=== PATIENT | female | born 1970 | race Asian ===

== ENCOUNTER → 2017-04-21 | Outpatient (CLI) | payer BC ==
[~2017-04-21] MED LIST: ACET650S21 PO; AMLO5TAB2 PO; ASPI-650 PO; ESOM20CA PO; OMEG1CAP6 PO; PARO10TA3 PO; SUMA50TA4 PO; TOPI25TA32 PO
== END | disposition home or self-care (01) ==
LOC: CARD 09:10
PROVIDERS: ATTEND Nurse Practitioner Family
DX: R94.31 Abnormal electrocardiogram [ECG] [EKG] (principal); I10 Essential (primary) hypertension; R07.89 Other chest pain
CPT/HCPCS: 93017; 93350

== ENCOUNTER → 2018-05-10 | Outpatient (CLI) | payer BC ==
[~2018-05-10] MED LIST changes: +GADOBUTROL 7.5 MMOL/7.5 ML PFS ONE
== END | disposition home or self-care (01) ==
LOC: CFH 15:41
PROVIDERS: ATTEND Registered Nurse
DX: G93.89 Other specified disorders of brain (principal)
CPT/HCPCS: 70553; A9585

== ENCOUNTER 2018-05-27 13:49 | Day surgery (SDC) | payer BC ==
[~2018-05-27] VITALS: Ht 175.3 cm; Wt 66.6 kg
[~2018-05-27 13:49] MED LIST changes: -GADOBUTROL 7.5 MMOL/7.5 ML PFS ONE
[2018-05-27] MEDS ORDERED: SODIUM CHLORIDE 0.9% 1,000 ML IV SCH (14:18)
[2018-05-27 14:39] VITALS: BP 139/88
[2018-05-27] MEDS ORDERED: LIDOCAINE-MPF 2%, 2ML ONE (14:55)
[2018-05-27] MEDS ORDERED: PLEASE ENTER HEIGHT AND WEIGHT MC SCH (15:00)
[2018-05-27 17:00] VITALS: BP 136/75
[2018-05-27 17:07] LABS: GLUCOSE, CSF 47 mg/dL (40-80); TOTAL PROTEIN,CSF 37 mg/dL (15-45)
[2018-05-27 17:30] LABS: ALBUMIN 3.6 g/dL (3.4-5.0); ANION GAP 5 mmol/L (5-15); CALCIUM 8.9 mg/dL (8.5-10.1); CHLORIDE 110 mmol/L (98-107); CREATININE 0.66 mg/dL (0.55-1.02)
[2018-05-27 19:30] VITALS: BP 134/78
== END 2018-05-27 20:00 | disposition home or self-care (01) ==
LOC: RAD 13:49 → 4NOR 16:40 → RAD 20:00
PROVIDERS: ATTEND Registered Nurse
DX: G35 Multiple sclerosis (principal); I10 Essential (primary) hypertension; Z79.82 Long term (current) use of aspirin; Z79.899 Other long term (current) drug therapy
CPT/HCPCS: 36415; 62270; 80069; 82040; 82042; 82784; 82945; 83520; 83873; 84157; 84244; 86645; 86695; 86696; 86762; 86777; 86778; 89051; J3490

== ENCOUNTER → 2018-11-09 | Outpatient (CLI) | payer BC ==
[~2018-11-09] MED LIST changes: +AMLO-150 PO; -AMLO5TAB2 PO; +GADOBUTROL 7.5 MMOL/7.5 ML PFS ONE
== END | disposition home or self-care (01) ==
LOC: CFH 15:14
PROVIDERS: ATTEND Registered Nurse
DX: R90.82 White matter disease, unspecified (principal); G43.109 Migraine with aura, not intractable, without status migrainosus
CPT/HCPCS: 70553; 82565; A9585

== ENCOUNTER 2019-06-19 11:38 | Outpatient (CLI) | payer BC ==
[~2019-06-19 11:38] MED LIST changes: -GADOBUTROL 7.5 MMOL/7.5 ML PFS ONE
== END 2019-06-19 23:59 | disposition home or self-care (01) ==
LOC: CFH 11:38
DX: E04.1 Nontoxic single thyroid nodule (principal)
CPT/HCPCS: 76536

== ENCOUNTER 2020-03-18 12:21 | Outpatient (CLI) | payer BC | END 2020-03-18 23:59 | disposition home or self-care (01) | LOC: CFH 12:21 | PROVIDERS: ATTEND Family Medicine | DX: Z12.31 Encounter for screening mammogram for malignant neoplasm of breast (principal); Z13.6 Encounter for screening for cardiovascular disorders; E78.5 Hyperlipidemia, unspecified; E04.9 Nontoxic goiter, unspecified; E04.1 Nontoxic single thyroid nodule | CPT/HCPCS: 75571; 76536; 77063; 77067 ==

== ENCOUNTER → 2020-04-03 | Outpatient (CLI) | payer BC | END | disposition home or self-care (01) | LOC: CFH 07:25 | PROVIDERS: ATTEND Family Medicine | DX: R92.8 Other abnormal and inconclusive findings on diagnostic imaging of breast (principal) | CPT/HCPCS: 76642; 77065 ==

== ENCOUNTER 2020-04-25 13:45 | Outpatient (CLI) | payer BC ==
[2020-04-25] MEDS ORDERED: LIDOCAINE 1%, 20ML ONE (14:00)
[2020-04-25] MEDS ORDERED: SODIUM BICARBONATE 4.2%, 5ML ONE (14:00)
[2020-04-25] MEDS ORDERED: LIDOCAINE 1%-EPI 1:100K, 20ML ONE (14:00)
== END 2020-04-25 23:59 | disposition home or self-care (01) ==
LOC: CFH 13:45
PROVIDERS: ATTEND Family Medicine
DX: N63.15 Unspecified lump in the right breast, overlapping quadrants (principal); D05.11 Intraductal carcinoma in situ of right breast
CPT/HCPCS: 19083; 88305; 88341; 88342; J3490

== ENCOUNTER 2020-05-23 08:20 | Outpatient (CLI) | payer BC ==
[2020-05-23] MEDS ORDERED: LIDOCAINE 1%-EPI 1:100K, 20ML ONE (09:31)
[2020-05-23] MEDS ORDERED: SODIUM BICARBONATE 4.2%, 5ML ONE (09:31)
[2020-05-23] MEDS ORDERED: LIDOCAINE 1%, 20ML ONE (09:31)
[2020-05-27] MEDS ORDERED: LEVO75TA5 PO (08:18)
== END 2020-05-23 23:59 | disposition home or self-care (01) ==
LOC: CFH 08:20
PROVIDERS: ATTEND Surgery
DX: D05.11 Intraductal carcinoma in situ of right breast (principal); Z88.8 Allergy status to other drugs, medicaments and biological substances; Z79.82 Long term (current) use of aspirin; Z72.89 Other problems related to lifestyle; Z82.49 Family history of ischemic heart disease and other diseases of the circulatory system; Z79.899 Other long term (current) drug therapy
CPT/HCPCS: 19285; 77065; J3490

== ENCOUNTER 2020-05-30 09:25 | Day surgery (SDC) | payer BC ==
[~2020-05-30] VITALS: Ht 160 cm; Wt 65.0 kg
[~2020-05-30 09:25] MED LIST changes: +LEVO75TA5 PO
[2020-05-30] MEDS ORDERED: LIDOCAINE-MPF 1%, 5ML ONE (09:45)
[2020-05-30] MEDS ORDERED: LACTATED RINGERS 1,000 ML IV SCH (10:16)
[2020-05-30 10:18] VITALS: BP 133/92
[2020-05-30] MEDS ORDERED: MIDAZOLAM 1 MG/ML, 2ML ONE (10:27)
[2020-05-30] MEDS ORDERED: FENTANYL PF 250 MCG/5ML ONE (10:27)
[2020-05-30] MEDS ORDERED: CHLORHEXIDINE 15 ML UDC MM ONE (10:30)
[2020-05-30] MEDS ORDERED: BUPIVACAINE/PF-EPI 0.5% 1:200K ONE (10:53)
[2020-05-30] MEDS ORDERED: ISOSULFAN BLUE 10 MG/ML, 5ML IV ONE (10:53)
[2020-05-30] MEDS ORDERED: SCOPOLAMINE 1MG PATCH TD SCH (11:00)
[2020-05-30] MEDS ORDERED: SCOPOLAMINE 1MG PATCH TD ONE (11:00)
[2020-05-30] MEDS ORDERED: DEXAMETHASONE 4 MG/ML, 1ML ONE (11:14)
[2020-05-30] MEDS ORDERED: CEFAZOLIN 1,000 MG ONE (11:14)
[2020-05-30] MEDS ORDERED: ROCURONIUM 10 MG/ML,10ML ONE (11:14)
[2020-05-30] MEDS ORDERED: PROPOFOL 10 MG/ML, 20ML ONE (11:14)
[2020-05-30] MEDS ORDERED: ONDANSETRON 2MG/ML, 2ML ONE (11:14)
[2020-05-30] MEDS ORDERED: SUCCINYLCHOLINE 20 MG/ML, 10ML ONE (11:14)
[2020-05-30] MEDS ORDERED: MEPERIDINE/PF 25MG/0.5ML IVPush PRN (12:00)
[2020-05-30] MEDS ORDERED: DIAZEPAM 5 MG/ML, 2ML IV PRN ×2 (12:00)
[2020-05-30] MEDS ORDERED: ALBUTEROL SULFATE 2.5 MG/3 ML NPPB PRN (12:00)
[2020-05-30] MEDS ORDERED: ONDANSETRON 2MG/ML, 2ML IVPush PRN (12:00)
[2020-05-30] MEDS ORDERED: hydrALAzine 20 MG/ML, 1ML IV PRN (12:00)
[2020-05-30] MEDS ORDERED: METOCLOPRAMIDE 5 MG/ML, 2ML IV PRN (12:00)
[2020-05-30] MEDS ORDERED: LABETALOL 5MG/ML, 20ML IV PRN (12:00)
[2020-05-30] MEDS ORDERED: PROMETHAZINE 25 MG/ML, 1ML IV PRN (12:00)
[2020-05-30] MEDS ORDERED: KETOROLAC 30 MG/1 ML IV PRN (12:00)
[2020-05-30] MEDS ORDERED: FENTANYL PF 100 MCG/2ML ONE (13:56)
[2020-05-30] MEDS ORDERED: ACETAMINOPHEN 650 MG/20.3 ML UDC ONE (13:56)
[2020-05-30] MEDS ORDERED: OXYcodone 5 MG/5 ML ORAL.SOL UDC ONE (13:56)
[2020-05-30] MEDS: OXYcodone 5 MG/5 ML ORAL.SOL UDC PO PRN ×2 (14:00→16:59)
[2020-05-30] MEDS ORDERED: ACETAMINOPHEN 650 MG/20.3 ML UDC PO PRN (14:00)
[2020-05-30] MEDS: FENTANYL PF 100 MCG/2ML IV PRN ×4 (14:00→14:21)
[2020-05-30] MEDS ORDERED: HYDROmorphone 1 MG/ML, 1ML INJ ONE (14:17)
[2020-05-30] MEDS: HYDROmorphone 1 MG/ML, 1ML INJ IV PRN ×2 (14:30→14:35)
== END 2020-05-30 17:25 | disposition home or self-care (01) ==
LOC: OUT 09:25 → EDSTATUS 12:00 → OUT 17:25
PROVIDERS: ATTEND Surgery
DX: C50.111 Malignant neoplasm of central portion of right female breast (principal); Z20.828 Contact with and (suspected) exposure to other viral communicable diseases; I10 Essential (primary) hypertension; E03.9 Hypothyroidism, unspecified; Z79.890 Hormone replacement therapy; Z79.899 Other long term (current) drug therapy; Z90.49 Acquired absence of other specified parts of digestive tract; Z90.710 Acquired absence of both cervix and uterus; Z88.8 Allergy status to other drugs, medicaments and biological substances; Z80.3 Family history of malignant neoplasm of breast; Z82.49 Family history of ischemic heart disease and other diseases of the circulatory system; Z83.3 Family history of diabetes mellitus; Z82.3 Family history of stroke
CPT/HCPCS: 19301; 36415; 38525; 38792; 76098; 87635; 88305; 88307; 88333; A9541; J0330; J0690; J1100; J1170; J2250; J2405; J2704; J3010; J7120

== ENCOUNTER → 2020-06-26 | Outpatient (CLI) | payer BC ==
[~2020-06-26] MED LIST changes: +AMLO10TA8 PO; +ROSU5TAB12 PO
== END | disposition home or self-care (01) ==
LOC: CVU 13:54
PROVIDERS: ATTEND Specialist
DX: C50.811 Malignant neoplasm of overlapping sites of right female breast (principal)
CPT/HCPCS: 93306

== ENCOUNTER 2020-06-27 07:14 | Day surgery (SDC) | payer BC ==
[~2020-06-27] VITALS: Ht 160 cm; Wt 65.6 kg
[~2020-06-27 07:14] MED LIST changes: -AMLO10TA8 PO; -ROSU5TAB12 PO
[2020-06-27 07:38] VITALS: BP 121/84
[2020-06-27] MEDS ORDERED: ROSU5TAB12 PO (07:44)
[2020-06-27] MEDS ORDERED: AMLO10TA8 PO (07:44)
[2020-06-27] MEDS ORDERED: LACTATED RINGERS 1,000 ML IV SCH (07:45)
[2020-06-27] MEDS ORDERED: CHLORHEXIDINE 15 ML UDC MM ONE (08:00)
[2020-06-27] MEDS ORDERED: ACETAMINOPHEN 500 MG TABLET ONE (08:27)
[2020-06-27] MEDS ORDERED: SCOPOLAMINE 1MG PATCH TD ONE (08:28)
[2020-06-27] MEDS ORDERED: ACETAMINOPHEN 500 MG TABLET PO ONE (08:30)
[2020-06-27] MEDS ORDERED: SCOPOLAMINE 1MG PATCH TD SCH (08:30)
[2020-06-27] MEDS ORDERED: HEPARIN 1,000 UNITS/ML, 10ML ONE (08:32)
[2020-06-27] MEDS ORDERED: BUPIVACAINE/PF 0.5% ONE (08:32)
[2020-06-27] MEDS ORDERED: EPINEPHRINE 1 MG/ML, 1ML ONE (08:32)
[2020-06-27] MEDS ORDERED: FENTANYL PF 250 MCG/5ML ONE (08:48)
[2020-06-27] MEDS ORDERED: MIDAZOLAM 1 MG/ML, 2ML ONE (08:48)
[2020-06-27] MEDS ORDERED: PROPOFOL 10 MG/ML, 20ML ONE (09:04)
[2020-06-27] MEDS ORDERED: CEFAZOLIN 1,000 MG ONE (09:04)
[2020-06-27] MEDS ORDERED: PHENYLEPHRINE 10 MG/ML ONE (09:04)
[2020-06-27] MEDS ORDERED: SUCCINYLCHOLINE 20 MG/ML, 10ML ONE (09:04)
[2020-06-27] MEDS ORDERED: LIDOCAINE PF 2%, 5ML ONE (09:04)
[2020-06-27] MEDS ORDERED: KETOROLAC 30 MG/1 ML ONE (09:04)
[2020-06-27] MEDS ORDERED: ONDANSETRON 2MG/ML, 2ML ONE ×2 (09:04→11:41)
[2020-06-27] MEDS ORDERED: DEXAMETHASONE 4 MG/ML, 1ML ONE (09:04)
[2020-06-27] MEDS ORDERED: hydrALAzine 20 MG/ML, 1ML IV PRN (09:30)
[2020-06-27] MEDS ORDERED: LABETALOL 5MG/ML, 20ML IV PRN (09:30)
[2020-06-27] MEDS ORDERED: MEPERIDINE/PF 25MG/0.5ML IVPush PRN (09:30)
[2020-06-27] MEDS ORDERED: PROMETHAZINE 25 MG/ML, 1ML IVPush PRN (09:30)
[2020-06-27] MEDS ORDERED: DIAZEPAM 5 MG/ML, 2ML IVPush PRN (09:30)
[2020-06-27] MEDS ORDERED: ONDANSETRON 2MG/ML, 2ML IVPush PRN (09:30)
[2020-06-27] MEDS ORDERED: DIPHENHYDRAMINE 50 MG/ML, 1ML IVPush PRN (09:30)
[2020-06-27] MEDS ORDERED: HYDROmorphone 1 MG/ML, 1ML INJ IVPush PRN (09:30)
[2020-06-27] MEDS ORDERED: HEPARIN 1,000 UNITS/ML, 10ML IV ONE (09:31)
[2020-06-27] MEDS ORDERED: BUPIVACAINE/PF-EPI 0.5% 1:200K INFIL ONE (09:31)
[2020-06-27] MEDS ORDERED: FENTANYL PF 100 MCG/2ML ONE (11:27)
[2020-06-27] MEDS: OXYcodone 5 MG/5 ML ORAL.SOL UDC PO PRN ×2 (11:28→15:59)
[2020-06-27] MEDS ORDERED: OXYcodone 5 MG/5 ML ORAL.SOL UDC ONE (11:28)
[2020-06-27] MEDS: FENTANYL PF 100 MCG/2ML IV PRN ×3 (11:35→12:10)
== END 2020-06-27 16:15 | disposition home or self-care (01) ==
LOC: OUT 07:14
PROVIDERS: ATTEND Surgery
DX: C50.811 Malignant neoplasm of overlapping sites of right female breast (principal); Z20.828 Contact with and (suspected) exposure to other viral communicable diseases; I10 Essential (primary) hypertension; E03.9 Hypothyroidism, unspecified; Z79.890 Hormone replacement therapy; Z79.899 Other long term (current) drug therapy; Z88.8 Allergy status to other drugs, medicaments and biological substances; Z90.710 Acquired absence of both cervix and uterus; Z90.49 Acquired absence of other specified parts of digestive tract; Z80.3 Family history of malignant neoplasm of breast; Z82.3 Family history of stroke; Z82.49 Family history of ischemic heart disease and other diseases of the circulatory system
CPT/HCPCS: 19303; 36415; 36561; 71045; 77001; 87635; 88307; C1729; C1788; J0171; J0330; J0690; J1100; J1644; J1885; J2250; J2370; J2405; J2704; J3010; J7120

== ENCOUNTER → 2020-07-16 | Outpatient (CLI) | payer BC ==
[~2020-07-16] MED LIST changes: +AMLO10TA8 PO; +ROSU5TAB12 PO
== END | disposition home or self-care (01) ==
LOC: RAD 11:17
PROVIDERS: ATTEND Specialist
DX: C50.811 Malignant neoplasm of overlapping sites of right female breast (principal)
CPT/HCPCS: 78306; A9503

== ENCOUNTER 2020-07-30 01:04 | Inpatient (IN) | payer BC ==
[~2020-07-30] VITALS: Ht 157.5 cm; Wt 68.0 kg
[2020-07-30] MEDS ORDERED: SODIUM CHLORIDE 0.9% 1,000ML IVBOLUS ONE ×2 (01:30→05:00)
[2020-07-30] MEDS ORDERED: SODIUM CHLORIDE FLUSH 10ML SYR IVF ONE (01:30)
[2020-07-30] MEDS ORDERED: ONDANSETRON 2MG/ML, 2ML IVPush ONE (01:30)
[2020-07-30] MEDS ORDERED: ONDANSETRON 2MG/ML, 2ML ONE ×2 (01:53→06:10)
[2020-07-30 02:11] LABS: MEAN CORPUSCULAR HGB CONC 31.2 g/dL (32.4-35.8); MEAN PLATELET VOLUME 8.5 fL (7.4-10.4); PLATELET COUNT 262 x10^3/uL (130-400); RED BLOOD COUNT 5.89 x10^6/uL (3.82-5.3); RED CELL DISTRIBUTION WIDTH 14.7 % (9.6-15.2)
[2020-07-30 02:17] LABS: ALANINE AMINOTRANSFERASE 44 U/L (12-78); ANION GAP 9 mmol/L (5-15); CALCIUM 9.5 mg/dL (8.5-10.1); CHLORIDE 99 mmol/L (98-107); CREATININE 1.23 mg/dL (0.55-1.02)
[2020-07-30 02:19] LABS: ALKALINE PHOSPHATASE 221 U/L (45-117); BILIRUBIN,TOTAL 0.4 mg/dL (0.2-1.0); TOTAL PROTEIN 8.5 g/dL (6.4-8.2)
[2020-07-30] MEDS ORDERED: HYDROmorphone 1 MG/ML, 1ML INJ ONE (02:21)
[2020-07-30] MEDS ORDERED: HYDROmorphone 1 MG/ML, 1ML INJ IVPush PRN (02:30)
[2020-07-30] MEDS ORDERED: MORPHINE SULFATE 4 MG/ML, 1ML IVPush PRN ×2 (02:30→05:30)
[2020-07-30 02:42] LABS: MD YES
--- NOTE | 2020-07-30 02:45 | NUR ---
A&o x4, answering questions appropriately. Pt reports significant diffuse abd pain/tenderness with associated N/V x 3 days. No rebound tenderness noted. States she had chemo on r/t breast CA dx. Denies hx of similar sx. Denies diarrhea. Denies fever/chills. Denies chest pain/SOB. Able to ambulate independently, slow/steady gait. Bed low, side rails up, call pineda within reach. at bedside
[2020-07-30 02:46] LABS: BAND#(MANUAL) 2.57 x10^3/uL; BANDS%(MANUAL) 9 % (0-7); LYMPH#(MANUAL) 3.72 x10^3/uL (1-3.4); LYMPHS% (MANUAL) 13 % (22-44); METAMYELOCYTES# (MANUAL) 0.29 x10^3/uL (0-0); METAMYELOCYTES% (MANUAL) 1 % (0-1); MONOS#(MANUAL) 1.43 x10^3/uL (0.3-2.7); MONOS% (MANUAL) 5 % (2-9); MYELOCYTES# (MANUAL) 0.57 x10^3/uL (0-0); MYELOCYTES% (MANUAL) 2 % (0-0); SEG#(MANUAL) 20.02 x10^3/uL (1.8-6.8); SEGS% (MANUAL) 70 % (42-75)
[2020-07-30 02:47] LABS: HYPOCHROMIA 1+; OVALOCYTES 1+
[2020-07-30 02:48] LABS: <PLATELET ESTIMATE> ADEQUATE; <PLT MORPHOLOGY> NORMAL PLT MORPH; MICROCYTOSIS 1+
[2020-07-30] MEDS ORDERED: OMNIPAQUE 350 MG/ML, 100ML BOTTLE ONE (03:05)
--- NOTE | 2020-07-30 05:00 | NUR ---
Resting comfortably. Remains on continuous O2 monitoring. No s/sx acute distress. remains at bedside. Bed low, side rails up, call pineda within reach
[2020-07-30] MEDS ORDERED: DOCUSATE 100 MG CAPSULE PO PRN (05:30)
[2020-07-30] MEDS ORDERED: METHOCARBAMOL 500 MG TABLET PO PRN (05:30)
[2020-07-30] MEDS: PIPERACILLIN/TAZO/PMX 3.375GM 50 ML IV SCH ×3 (05:30→19:46)
[2020-07-30] MEDS ORDERED: GUAIFENESIN/DM 200-20MG, 10ML UDC PO PRN (05:30)
[2020-07-30] MEDS ORDERED: HYDROcodone/APAP 5/325 TABLET PO PRN (05:30)
[2020-07-30] MEDS ORDERED: SODIUM CHLORIDE 0.9% 1,000 ML IV SCH (05:30)
[2020-07-30] MEDS: ENOXAPARIN 40 MG/0.4 ML SQ SCH (05:30)
--- NOTE | 2020-07-30 05:40 | NUR ---
Hospitalist at bedside
[2020-07-30] MEDS ORDERED: MORPHINE SULFATE 4 MG/ML, 1ML ONE (06:10)
[2020-07-30] MEDS ORDERED: ENOXAPARIN 40 MG/0.4 ML ONE (06:10)
[2020-07-30] MEDS ORDERED: PIPERACILLIN/TAZO/PMX 3.375GM 50 ML ONE (06:10)
[2020-07-30] MEDS: ONDANSETRON 2MG/ML, 2ML IVPush PRN ×3 (06:18→19:45)
--- NOTE | 2020-07-30 06:20 | NUR ---
Pt reports returning of abd pain/nausea. Medicated per orders, see eMAR for additional details. VSS. Denies other complaints at this time. remains at bedside. Bed low, side rails up, call light within reach
[2020-07-30] MEDS ORDERED: CEFTRIAXONE PMX 1GM/50ML 50 ML IV ONE (06:30)
--- NOTE | 2020-07-30 06:31 | NUR ---
Attempted report [id number]
--- NOTE | 2020-07-30 06:47 | NUR ---
Report given to Tenisha TAYLOR
--- NOTE | 2020-07-30 06:49 | NUR ---
Report given to Sandy TAYLOR
--- NOTE | 2020-07-30 06:50 | NUR ---
BEDSIDE REPORT RECEIVED FROM DANNY TAYLOR
[2020-07-30 07:14] VITALS: BP 129/81
--- NOTE | 2020-07-30 07:15 | NUR ---
Pt to be admitted to TELE 2, room 411. Report called to JAZMYNE TAYLOR
[2020-07-30] MEDS: IRBESARTAN 300 MG TABLET PO SCH (09:17)
[2020-07-30] MEDS: ATORVASTATIN 20 MG TABLET PO SCH (09:17)
[2020-07-30 12:23] VITALS: BP 148/87
[2020-07-30] MEDS: ACETAMINOPHEN 325 MG TABLET PO PRN ×2 (12:38→17:50)
[2020-07-30] MEDS: NS + 20MEQ KCL 1,000 ML IV SCH (14:45)
[2020-07-30 18:59] VITALS: BP 140/81
[2020-07-30] MEDS: morphine SULFATE 10 MG/ML, 1ML IVPush PRN (19:45)
[2020-07-31 01:18] VITALS: BP 148/87
[2020-07-31] MEDS: PIPERACILLIN/TAZO/PMX 3.375GM 50 ML IV SCH ×4 (01:44→19:49)
[2020-07-31] MEDS: NS + 20MEQ KCL 1,000 ML IV SCH ×3 (01:44→23:09)
[2020-07-31] MEDS: morphine SULFATE 10 MG/ML, 1ML IVPush PRN ×3 (02:02→21:34)
[2020-07-31] MEDS: ENOXAPARIN 40 MG/0.4 ML SQ SCH (05:36)
[2020-07-31] MEDS: LEVOTHYROXINE 75 MCG TABLET PO SCH (05:37)
[2020-07-31 06:00] LABS: MEAN CORPUSCULAR HEMOGLOBIN 19.9 pg (27.0-34.8); MEAN CORPUSCULAR HGB CONC 30.2 g/dL (32.4-35.8); MEAN PLATELET VOLUME 7.6 fL (7.4-10.4); PLATELET COUNT 208 x10^3/uL (130-400); RED BLOOD COUNT 5.16 x10^6/uL (3.82-5.3)
[2020-07-31 06:10] LABS: ANION GAP 5 mmol/L (5-15); CALCIUM 8.4 mg/dL (8.5-10.1); CHLORIDE 108 mmol/L (98-107)
[2020-07-31 06:20] LABS: CREATININE 0.72 mg/dL (0.55-1.02)
[2020-07-31 06:41] VITALS: BP 157/93
[2020-07-31 07:06] LABS: MD YES
[2020-07-31 07:08] LABS: BAND#(MANUAL) 3.35 x10^3/uL; BANDS%(MANUAL) 14 % (0-7); LYMPH#(MANUAL) 1.91 x10^3/uL (1-3.4); LYMPHS% (MANUAL) 8 % (22-44); METAMYELOCYTES# (MANUAL) 0.72 x10^3/uL (0-0); METAMYELOCYTES% (MANUAL) 3 % (0-1); SEG#(MANUAL) 17.93 x10^3/uL (1.8-6.8); SEGS% (MANUAL) 75 % (42-75)
[2020-07-31 07:09] LABS: TOXIC GRAN 1+
[2020-07-31 07:10] LABS: <PLATELET ESTIMATE> ADEQUATE; <PLT MORPHOLOGY> NORMAL PLT MORPH; ANISOCYTOSIS 1+; HYPOCHROMIA 1+; MICROCYTOSIS 1+; OVALOCYTES 1+; POLYCHROMASIA 1+
[2020-07-31] MEDS: ATORVASTATIN 20 MG TABLET PO SCH (07:48)
[2020-07-31] MEDS: IRBESARTAN 300 MG TABLET PO SCH (07:48)
[2020-07-31] MEDS: ONDANSETRON 2MG/ML, 2ML IVPush PRN ×3 (10:34→23:04)
[2020-07-31 12:11] VITALS: BP 170/104
[2020-07-31] MEDS ORDERED: PROMETHAZINE 25 MG/ML, 1ML ONE (12:51)
[2020-07-31] MEDS ORDERED: PROMETHAZINE 25 MG/ML, 1ML IM PRN (13:00)
[2020-07-31] MEDS ORDERED: PROMETHAZINE 25MG TABLET PO PRN (13:00)
[2020-07-31 14:09] VITALS: BP 138/86
[2020-07-31] MEDS: ACETAMINOPHEN 325 MG TABLET PO PRN (16:22)
[2020-07-31] MEDS: PROCHLORPERAZINE 5 MG/ML, 2ML IVPush PRN (17:34)
[2020-07-31 20:42] VITALS: BP 168/108
[2020-07-31] MEDS: ZOLPIDEM 5MG TABLET PO PRN (23:09)
[2020-08-01 01:07] VITALS: BP 130/83
[2020-08-01] MEDS: PIPERACILLIN/TAZO/PMX 3.375GM 50 ML IV SCH ×4 (01:49→19:59)
[2020-08-01] MEDS: PROCHLORPERAZINE 5 MG/ML, 2ML IVPush PRN ×4 (03:10→21:14)
[2020-08-01] MEDS: morphine SULFATE 10 MG/ML, 1ML IVPush PRN ×2 (03:18→21:20)
[2020-08-01] MEDS: ENOXAPARIN 40 MG/0.4 ML SQ SCH (05:18)
[2020-08-01] MEDS: LEVOTHYROXINE 75 MCG TABLET PO SCH (05:18)
[2020-08-01] MEDS: ONDANSETRON 2MG/ML, 2ML IVPush PRN ×3 (05:34→17:33)
[2020-08-01 06:00] LABS: ANION GAP 9 mmol/L (5-15); CALCIUM 8.6 mg/dL (8.5-10.1); CHLORIDE 107 mmol/L (98-107); CREATININE 0.72 mg/dL (0.55-1.02); MEAN CORPUSCULAR HGB CONC 30.6 g/dL (32.4-35.8); MEAN PLATELET VOLUME 7.5 fL (7.4-10.4); PLATELET COUNT 221 x10^3/uL (130-400); RED CELL DISTRIBUTION WIDTH 14.7 % (9.6-15.2)
[2020-08-01 06:32] VITALS: BP 130/77
[2020-08-01 07:08] LABS: MD YES
[2020-08-01 07:10] LABS: <PLATELET ESTIMATE> ADEQUATE; <PLT MORPHOLOGY> NORMAL PLT MORPH; ANISOCYTOSIS 1+; BAND#(MANUAL) 0.24 x10^3/uL; BANDS%(MANUAL) 1 % (0-7); HYPOCHROMIA 1+; LYMPH#(MANUAL) 0.24 x10^3/uL (1-3.4); LYMPHS% (MANUAL) 1 % (22-44); METAMYELOCYTES# (MANUAL) 0.96 x10^3/uL (0-0); METAMYELOCYTES% (MANUAL) 4 % (0-1); MICROCYTOSIS 1+; MYELOCYTES# (MANUAL) 0.24 x10^3/uL (0-0); MYELOCYTES% (MANUAL) 1 % (0-0); POLYCHROMASIA 1+; SEG#(MANUAL) 22.41 x10^3/uL (1.8-6.8); SEGS% (MANUAL) 93 % (42-75)
[2020-08-01 07:11] LABS: OVALOCYTES 1+
[2020-08-01] MEDS: ATORVASTATIN 20 MG TABLET PO SCH (08:10)
[2020-08-01] MEDS: IRBESARTAN 300 MG TABLET PO SCH (08:10)
[2020-08-01] MEDS: ACETAMINOPHEN 325 MG TABLET PO PRN ×2 (09:23→13:59)
[2020-08-01] MEDS: NS + 20MEQ KCL 1,000 ML IV SCH ×2 (09:23→19:59)
[2020-08-01 13:02] VITALS: BP 162/99
[2020-08-01 19:29] VITALS: BP 135/86
[2020-08-01 19:32] VITALS: BP 156/93
[2020-08-01] MEDS: ZOLPIDEM 5MG TABLET PO PRN (21:14)
[2020-08-02] MEDS: ONDANSETRON 2MG/ML, 2ML IVPush PRN ×3 (00:08→12:24)
[2020-08-02 01:50] VITALS: BP 149/88
[2020-08-02] MEDS: PIPERACILLIN/TAZO/PMX 3.375GM 50 ML IV SCH ×3 (02:05→14:43)
[2020-08-02] MEDS: PROCHLORPERAZINE 5 MG/ML, 2ML IVPush PRN ×3 (03:56→16:18)
[2020-08-02] MEDS: LEVOTHYROXINE 75 MCG TABLET PO SCH (05:32)
[2020-08-02] MEDS: ENOXAPARIN 40 MG/0.4 ML SQ SCH (05:32)
[2020-08-02] MEDS: NS + 20MEQ KCL 1,000 ML IV SCH (05:32)
[2020-08-02 08:30] VITALS: BP 162/99
[2020-08-02] MEDS: ATORVASTATIN 20 MG TABLET PO SCH (08:37)
[2020-08-02] MEDS: IRBESARTAN 300 MG TABLET PO SCH (08:38)
[2020-08-02] MEDS ORDERED: OXYcodone/APAP 5/325MG TABLET PO PRN (10:30)
[2020-08-02 11:16] LABS: MEAN CORPUSCULAR HEMOGLOBIN 20.1 pg (27.0-34.8); MEAN CORPUSCULAR HGB CONC 31.3 g/dL (32.4-35.8); MEAN PLATELET VOLUME 7.2 fL (7.4-10.4); PLATELET COUNT 222 x10^3/uL (130-400); RED BLOOD COUNT 5.24 x10^6/uL (3.82-5.3); RED CELL DISTRIBUTION WIDTH 14.6 % (9.6-15.2)
[2020-08-02 11:27] LABS: ANION GAP 7 mmol/L (5-15); CALCIUM 9.1 mg/dL (8.5-10.1); CHLORIDE 103 mmol/L (98-107); CREATININE 0.66 mg/dL (0.55-1.02)
[2020-08-02 11:49] LABS: MD YES
[2020-08-02 11:51] LABS: BAND#(MANUAL) 1.02 x10^3/uL; BANDS%(MANUAL) 5 % (0-7); LYMPH#(MANUAL) 2.45 x10^3/uL (1-3.4); LYMPHS% (MANUAL) 12 % (22-44); METAMYELOCYTES% (MANUAL) 1 % (0-1); MONOS% (MANUAL) 1 % (2-9); MYELOCYTES# (MANUAL) 0.41 x10^3/uL (0-0); MYELOCYTES% (MANUAL) 2 % (0-0); SEGS% (MANUAL) 79 % (42-75)
[2020-08-02 11:52] LABS: <PLATELET ESTIMATE> ADEQUATE; <PLT MORPHOLOGY> NORMAL PLT MORPH; ANISOCYTOSIS 1+; HYPOCHROMIA 1+; OVALOCYTES 1+; POLYCHROMASIA 1+
[2020-08-02 11:53] LABS: TOXIC GRAN 1+
[2020-08-02 14:08] VITALS: BP 170/98
[2020-08-02] MEDS ORDERED: IRBE300T40 PO (15:45)
[2020-08-02] MEDS ORDERED: OXYC5TAB3 PO (15:45)
[2020-08-02] MEDS ORDERED: CEFD300C37 PO (15:45)
[2020-08-02] MEDS ORDERED: PANT40TA6 PO (15:45)
[2020-08-02] MEDS ORDERED: METR500T PO (15:45)
[2020-08-03] MEDS ORDERED: PANTOPRAZOLE 40MG TABLET PO SCH (06:00)
== END 2020-08-02 18:02 | disposition home or self-care (01) | DRG 871 ==
LOC: ED 01:51 → EDIP 05:02 → 4WST 07:11
PROVIDERS: ADMIT Internal Medicine; ATTEND Internal Medicine
DX: A41.9 Sepsis, unspecified organism (principal); J96.01 Acute respiratory failure with hypoxia; N17.0 Acute kidney failure with tubular necrosis; E87.1 Hypo-osmolality and hyponatremia; A09 Infectious gastroenteritis and colitis, unspecified; C50.919 Malignant neoplasm of unspecified site of unspecified female breast; E06.3 Autoimmune thyroiditis; E78.5 Hyperlipidemia, unspecified; E86.0 Dehydration; E86.1 Hypovolemia; E87.5 Hyperkalemia; E87.6 Hypokalemia; I10 Essential (primary) hypertension; K29.00 Acute gastritis without bleeding; K29.80 Duodenitis without bleeding; R73.9 Hyperglycemia, unspecified; M35.00 Sjogren syndrome, unspecified; Z82.49 Family history of ischemic heart disease and other diseases of the circulatory system; Z83.3 Family history of diabetes mellitus; Z85.3 Personal history of malignant neoplasm of breast; Z90.710 Acquired absence of both cervix and uterus
CPT/HCPCS: 36415; 71045; 74177; 76700; 80048; 80053; 83605; 83690; 84145; 84443; 85025; 87040; 96361; 96374; 96375; 99291; G0378; J1170; J1650; J2405; J2543; J2550; J3480; Q9967; J0780; J2270; J7030

== ENCOUNTER 2020-09-30 17:57 | Inpatient (IN) | payer BC ==
[~2020-09-30] VITALS: Ht 157.5 cm; Wt 65.2 kg
[~2020-09-30 17:57] MED LIST changes: +AMLO-211 PO; -AMLO10TA8 PO; +CEFD300C37 PO; +IRBE300T40 PO; +METR500T PO; +OXYC5TAB3 PO; +PANT40TA6 PO
[2020-09-30] MEDS ORDERED: SODIUM CHLORIDE 0.9% 1,000ML IVBOLUS ONE (18:30)
--- NOTE | 2020-09-30 18:38 | NUR ---
sports therapist note: Pt to go to room 36 when lab is finished drawing her blood.
--- NOTE | 2020-09-30 18:40 | NUR ---
pt fainted during lab draw, wc pt to room with family, applied bp and pulse ox. side rails up x [address]
[2020-09-30 18:55] LABS: MEAN CORPUSCULAR HEMOGLOBIN 21.3 pg (27.0-34.8); MEAN CORPUSCULAR HGB CONC 31.7 g/dL (32.4-35.8); MEAN PLATELET VOLUME 8.5 fL (7.4-10.4); PLATELET COUNT 134 x10^3/uL (130-400); RED CELL DISTRIBUTION WIDTH 18.2 % (9.6-15.2)
[2020-09-30 19:08] LABS: ALANINE AMINOTRANSFERASE 19 U/L (12-78); ALBUMIN 3.4 g/dL (3.4-5.0); ANION GAP 7 mmol/L (5-15); CALCIUM 8.9 mg/dL (8.5-10.1); CHLORIDE 99 mmol/L (98-107); CREATININE 1.18 mg/dL (0.55-1.02)
[2020-09-30 19:10] LABS: ALKALINE PHOSPHATASE 106 U/L (45-117); BILIRUBIN,TOTAL 0.3 mg/dL (0.2-1.0); TOTAL PROTEIN 8.1 g/dL (6.4-8.2)
[2020-09-30 19:29] LABS: MD YES
[2020-09-30 19:34] LABS: SEGS% (MANUAL) 40 % (42-75)
[2020-09-30 19:37] LABS: BAND#(MANUAL) 0.24 x10^3/uL; BANDS%(MANUAL) 12 % (0-7); BASOS#(MANUAL) 0.02 x10^3/uL (0-0.1); BASOS% (MANUAL) 1 % (0-1); EOS#(MANUAL) 0.02 x10^3/uL (0.0-0.4); EOS% (MANUAL) 1 % (1-7); LYMPH#(MANUAL) 0.56 x10^3/uL (1-3.4); LYMPHS% (MANUAL) 28 % (22-44); METAMYELOCYTES# (MANUAL) 0.04 x10^3/uL (0-0); METAMYELOCYTES% (MANUAL) 2 % (0-1); MONOS% (MANUAL) 15 % (2-9); REACTIVE LYMPHS # (MANUAL) 0.02 x10^3/uL (0-0); REACTIVE LYMPHS % (MANUAL) 1 % (0-0)
[2020-09-30 19:38] LABS: ANISOCYTOSIS 1+
[2020-09-30 19:39] LABS: HYPOCHROMIA 1+; MICROCYTOSIS 2+; OVALOCYTES 1+; TEAR DROPS 1+
[2020-09-30 19:40] LABS: <PLATELET ESTIMATE> ADEQUATE; <PLT MORPHOLOGY> NORMAL PLT MORPH; TOXIC GRAN 1+
--- NOTE | 2020-09-30 19:57 | NUR ---
PT RESTING IN ROOM. REGULAR RESP. NO ACUTE DISTRESS NOTED. CALL LIGHT IN PLACE. WILL CONTINUE TO MONITOR.
--- NOTE | 2020-09-30 20:14 | NUR ---
NEEDS NEW IV FOR CTA OR PORT ACCESS
[2020-09-30] MEDS ORDERED: AZITHROMYCIN 500 MG TABLET ONE (20:23)
[2020-09-30] MEDS ORDERED: AZITHROMYCIN 500 MG TABLET PO ONE ×2 (20:30)
[2020-09-30] MEDS ORDERED: CEFEPIME 2 GM in DEXTROSE 5% 100 ML IV ONE (20:30)
--- NOTE | 2020-09-30 20:31 | NUR ---
both blood cultures drawn before abx given
[2020-09-30] MEDS ORDERED: OMNIPAQUE 350 MG/ML, 100ML BOTTLE ONE (21:16)
--- NOTE | 2020-09-30 21:19 | NUR ---
PT IN CT
--- NOTE | 2020-09-30 22:40 | NUR ---
PT RESTING IN ROOM. REGULAR RESP. NO ACUTE DISTRESS NOTED. WILL CONTINUE TO MONITOR.
[2020-10-01] MEDS ORDERED: MELATONIN 5 MG TABLET PO PRN
[2020-10-01] MEDS ORDERED: DOCUSATE 100 MG CAPSULE PO PRN
[2020-10-01] MEDS ORDERED: PHARMACY MAY ADJ FOR RENAL FX MC PRN
[2020-10-01] MEDS ORDERED: GUAIFENESIN/DM 200-20MG, 10ML UDC PO PRN
[2020-10-01] MEDS ORDERED: LIDODERM 5% PATCH TD PRN
[2020-10-01] MEDS ORDERED: LABETALOL 5MG/ML, 20ML IVPush PRN
[2020-10-01] MEDS ORDERED: ACETAMINOPHEN 325 MG TABLET PO PRN
[2020-10-01] MEDS ORDERED: ONDANSETRON 2MG/ML, 2ML IVPush PRN
[2020-10-01 00:47] VITALS: BP 100/69
[2020-10-01] MEDS: HEPARIN 5,000 UNITS/ML, 1ML SQ SCH ×3 (01:11→15:54)
[2020-10-01 01:42] LABS: RAPID INFLUENZA A Negative (Negative); RAPID INFLUENZA B Negative (Negative)
[2020-10-01 04:02] LABS: MEAN CORPUSCULAR HEMOGLOBIN 21.6 pg (27.0-34.8); MEAN PLATELET VOLUME 8.5 fL (7.4-10.4); PLATELET COUNT 135 x10^3/uL (130-400); RED BLOOD COUNT 4.45 x10^6/uL (3.82-5.3); RED CELL DISTRIBUTION WIDTH 17.9 % (9.6-15.2)
[2020-10-01 04:10] LABS: CHLORIDE 106 mmol/L (98-107)
[2020-10-01 04:20] LABS: ANION GAP 4 mmol/L (5-15); CREATINE KINASE, TOTAL 36 U/L (26-192); CREATININE 0.87 mg/dL (0.55-1.02)
[2020-10-01 04:23] LABS: D-DIMER 2.28 ug/mlFEU (0.00-0.52); INTERNATIONAL NORMALIZED RATIO 0.96 (0.93-1.1); PROTHROMBIN TIME 10.2 Seconds (9.6-11.5)
[2020-10-01] MEDS: CEFEPIME 2 GM in DEXTROSE 5% 100 ML IV SCH ×3 (04:25→21:32)
[2020-10-01 04:41] LABS: MD YES
[2020-10-01 04:44] LABS: BAND#(MANUAL) 0.39 x10^3/uL; BANDS%(MANUAL) 13 % (0-7); EOS#(MANUAL) 0.03 x10^3/uL (0.0-0.4); EOS% (MANUAL) 1 % (1-7); LYMPH#(MANUAL) 1.02 x10^3/uL (1-3.4); LYMPHS% (MANUAL) 34 % (22-44); METAMYELOCYTES# (MANUAL) 0.03 x10^3/uL (0-0); METAMYELOCYTES% (MANUAL) 1 % (0-1); MONOS#(MANUAL) 0.45 x10^3/uL (0.3-2.7); MONOS% (MANUAL) 15 % (2-9); SEG#(MANUAL) 1.08 x10^3/uL (1.8-6.8); SEGS% (MANUAL) 36 % (42-75)
[2020-10-01 04:45] LABS: ANISOCYTOSIS 1+; MICROCYTOSIS 1+; OVALOCYTES 1+
[2020-10-01 04:46] LABS: <PLATELET ESTIMATE> ADEQUATE; <PLT MORPHOLOGY> NORMAL PLT MORPH
[2020-10-01] MEDS: PANTOPRAZOLE 40MG TABLET PO SCH (06:34)
[2020-10-01 07:15] VITALS: BP 102/69
[2020-10-01] MEDS: DOXYCYCLINE 100 MG in DEXTROSE 5% 250 ML IV SCH ×2 (08:35→19:55)
[2020-10-01] MEDS: LEVOTHYROXINE 75 MCG TABLET PO SCH (08:35)
[2020-10-01] MEDS: ZINC SULFATE 220 MG CAPSULE PO SCH (08:35)
[2020-10-01] MEDS: ASCORBIC ACID 500 MG TABLET PO SCH ×3 (08:36→19:55)
[2020-10-01] MEDS: CHOLECALCIFEROL 5,000u TAB PO SCH (08:36)
[2020-10-01] MEDS: ATORVASTATIN 20 MG TABLET PO SCH (08:36)
[2020-10-01] MEDS: IRBESARTAN 300 MG TABLET PO SCH (08:53)
[2020-10-01] MEDS ORDERED: IRBESARTAN 300 MG TABLET PO SCH ×2 (09:00)
[2020-10-01 12:34] VITALS: BP 103/68
[2020-10-01] MEDS ORDERED: DEXAMETHASONE 4 MG/ML, 1ML IVPush ONE (17:00)
[2020-10-01] MEDS ORDERED: POTASSIUM CHLORIDE 20 MEQ TAB.ER.PRT PO ONE (17:00)
[2020-10-01 20:01] VITALS: BP 113/72
[2020-10-02] MEDS: HEPARIN 5,000 UNITS/ML, 1ML SQ SCH ×2 (01:09→08:48)
[2020-10-02 01:10] VITALS: BP 118/78
[2020-10-02 05:15] LABS: HCT (SEDRATE) 28.5 % (34.6-47.8)
[2020-10-02] MEDS: PANTOPRAZOLE 40MG TABLET PO SCH (05:21)
[2020-10-02] MEDS: CEFEPIME 2 GM in DEXTROSE 5% 100 ML IV SCH (05:21)
[2020-10-02 05:22] LABS: C-REACTIVE PROTEIN, QUANT 2.3 mg/dL (0.02-0.49)
[2020-10-02 07:24] LABS: ALANINE AMINOTRANSFERASE 24 U/L (12-78); ALBUMIN 3.1 g/dL (3.4-5.0); ANION GAP 8 mmol/L (5-15); CALCIUM 9.2 mg/dL (8.5-10.1); CHLORIDE 110 mmol/L (98-107)
[2020-10-02 07:27] LABS: ALKALINE PHOSPHATASE 91 U/L (45-117); BILIRUBIN,TOTAL 0.2 mg/dL (0.2-1.0); CREATININE 0.67 mg/dL (0.55-1.02); TOTAL PROTEIN 7.7 g/dL (6.4-8.2)
[2020-10-02 07:38] LABS: BASOPHILS % (AUTO) 1 % (0-1); EOSINOPHILS % (AUTO) 0 % (1-7); LYMPHOCYTES % (AUTO) 21 % (22-44); MEAN CORPUSCULAR HEMOGLOBIN 21.5 pg (27.0-34.8); MEAN CORPUSCULAR HGB CONC 31.8 g/dL (32.4-35.8); MEAN PLATELET VOLUME 9.2 fL (7.4-10.4); MONOCYTES % (AUTO) 12 % (2-9); NEUTROPHILS % (AUTO) 65 % (42-75); PLATELET COUNT 147 x10^3/uL (130-400); RED BLOOD COUNT 4.25 x10^6/uL (3.82-5.3)
[2020-10-02 07:41] LABS: MD NO
[2020-10-02] MEDS ORDERED: CHOL500045 PO (08:47)
[2020-10-02] MEDS ORDERED: CEFD300C37 PO (08:47)
[2020-10-02] MEDS ORDERED: DOXY100T PO (08:47)
[2020-10-02] MEDS ORDERED: ASCO500T9 PO (08:47)
[2020-10-02] MEDS: ATORVASTATIN 20 MG TABLET PO SCH (08:48)
[2020-10-02] MEDS: LEVOTHYROXINE 75 MCG TABLET PO SCH (08:48)
[2020-10-02] MEDS: CHOLECALCIFEROL 5,000u TAB PO SCH (08:48)
[2020-10-02] MEDS: ASCORBIC ACID 500 MG TABLET PO SCH (08:48)
[2020-10-02] MEDS: ZINC SULFATE 220 MG CAPSULE PO SCH (08:48)
[2020-10-02] MEDS: DOXYCYCLINE 100 MG in DEXTROSE 5% 250 ML IV SCH (08:49)
[2020-10-02] MEDS: IRBESARTAN 300 MG TABLET PO SCH (08:53)
[2020-10-02 09:16] VITALS: BP 115/76
== END 2020-10-02 13:46 | disposition home or self-care (01) | DRG 193 ==
LOC: ED 22:47 → EDIP 10-01 00:38 → 3N 10-01 00:45
PROVIDERS: ADMIT Family Medicine; ATTEND Hospitalist
DX: J18.9 Pneumonia, unspecified organism (principal); N17.0 Acute kidney failure with tubular necrosis; M35.00 Sjogren syndrome, unspecified; K21.9 Gastro-esophageal reflux disease without esophagitis; I10 Essential (primary) hypertension; E87.6 Hypokalemia; E78.5 Hyperlipidemia, unspecified; D50.9 Iron deficiency anemia, unspecified; D70.9 Neutropenia, unspecified; E06.3 Autoimmune thyroiditis; Z20.828 Contact with and (suspected) exposure to other viral communicable diseases; Z85.3 Personal history of malignant neoplasm of breast; Z90.11 Acquired absence of right breast and nipple; Z90.710 Acquired absence of both cervix and uterus; Z90.49 Acquired absence of other specified parts of digestive tract; Z88.6 Allergy status to analgesic agent
CPT/HCPCS: 36415; 71275; 80048; 80053; 82550; 82728; 83605; 83615; 84145; 85025; 85379; 85384; 85610; 85651; 85730; 86140; 87040; 87400; 93005; 93970; 96361; 96374; G0378; J1100; J1644; J7060; Q9967; J7030; U0003

== ENCOUNTER → 2020-10-29 | Outpatient (CLI) | payer BC ==
[~2020-10-29] MED LIST changes: +ASCO500T9 PO; +CHOL500045 PO; +DOXY100T PO
== END | disposition home or self-care (01) ==
LOC: CVU 16:00
PROVIDERS: ATTEND Specialist
DX: C50.811 Malignant neoplasm of overlapping sites of right female breast (principal); Z79.899 Other long term (current) drug therapy
CPT/HCPCS: 93308; 93356

== ENCOUNTER 2021-02-04 12:57 | Inpatient (IN) | payer BC ==
[~2021-02-04] VITALS: Ht 160 cm; Wt 64.7 kg
[~2021-02-04 12:57] MED LIST changes: -ASPI-650 PO; +ASPI325T20 PO; -OXYC5TAB3 PO; +OXYC5TAB98 PO
--- NOTE | 2021-02-04 13:26 | NUR ---
ASSUMED CARE OF PT
--- NOTE | 2021-02-04 13:32 | NUR ---
DR. BENTLEY BEDSIDE
--- NOTE | 2021-02-04 13:37 | NUR ---
PT REPORTS 0800 JAW NUMBNESS, PAIN BACK AT HEAD. LEFT ARM WEAKNESS AT 1100.
[2021-02-04] MEDS ORDERED: ANAS1TAB49 PO (13:43)
[2021-02-04] MEDS ORDERED: HYDR25TA6 PO (13:43)
[2021-02-04] MEDS ORDERED: CARV6.2512 PO (13:43)
[2021-02-04 14:06] LABS: BASOPHILS % (AUTO) 1 % (0-1); EOSINOPHILS % (AUTO) 3 % (1-7); LYMPHOCYTES % (AUTO) 46 % (22-44); MEAN CORPUSCULAR HGB CONC 32.4 g/dL (32.4-35.8); MEAN PLATELET VOLUME 8.2 fL (7.4-10.4); MONOCYTES % (AUTO) 10 % (2-9); NEUTROPHILS % (AUTO) 40 % (42-75); PLATELET COUNT 208 x10^3/uL (130-400); RED BLOOD COUNT 5.61 x10^6/uL (3.82-5.3); RED CELL DISTRIBUTION WIDTH 13.2 % (9.6-15.2)
[2021-02-04 14:13] LABS: INTERNATIONAL NORMALIZED RATIO 0.95 (0.93-1.1); PROTHROMBIN TIME 10.2 Seconds (9.6-11.5)
[2021-02-04 14:15] LABS: TROPONIN I < 0.015 ng/mL (0.000-0.045)
[2021-02-04 14:35] LABS: MD SCAN
--- NOTE | 2021-02-04 14:41 | NUR ---
PT IN CT
--- NOTE | 2021-02-04 15:18 | NUR ---
PT UP AND BACK FROM RESTROOM.
[2021-02-04] MEDS ORDERED: OMNIPAQUE 350 MG/ML, 100ML BOTTLE ONE (15:28)
[2021-02-04] MEDS ORDERED: CLOPIDOGREL 300 MG TABLET PO ONE (15:30)
[2021-02-04] MEDS ORDERED: PLEASE ENTER ALLERGIES MC SCH (17:00)
[2021-02-04] MEDS ORDERED: ENALAPRILAT 1.25 MG/ML, 2ML IV PRN (17:00)
[2021-02-04] MEDS ORDERED: LABETALOL 5MG/ML, 20ML IV PRN (17:00)
[2021-02-04] MEDS: ENOXAPARIN 40 MG/0.4 ML SQ SCH (17:00)
[2021-02-04 17:15] VITALS: BP 161/91
[2021-02-04 19:06] VITALS: BP 151/96
[2021-02-04] MEDS: ACETAMINOPHEN 325 MG TABLET PO PRN (19:53)
[2021-02-04] MEDS: ATORVASTATIN 80 MG TABLET PO SCH (20:44)
[2021-02-04 20:48] LABS: TROPONIN I < 0.015 ng/mL (0.000-0.045)
[2021-02-05 00:41] VITALS: BP 169/98
[2021-02-05 02:30] LABS: BASOPHILS % (AUTO) 1 % (0-1); EOSINOPHILS % (AUTO) 4 % (1-7); LYMPHOCYTES % (AUTO) 50 % (22-44); MEAN CORPUSCULAR HEMOGLOBIN 21.9 pg (27.0-34.8); MEAN CORPUSCULAR HGB CONC 32.4 g/dL (32.4-35.8); MEAN PLATELET VOLUME 7.8 fL (7.4-10.4); MONOCYTES % (AUTO) 10 % (2-9); NEUTROPHILS % (AUTO) 35 % (42-75); PLATELET COUNT 176 x10^3/uL (130-400); RED BLOOD COUNT 5.26 x10^6/uL (3.82-5.3); RED CELL DISTRIBUTION WIDTH 13.3 % (9.6-15.2)
[2021-02-05 02:31] LABS: MD NO
[2021-02-05 02:32] LABS: HCT (SEDRATE) 35.5 % (34.6-47.8)
[2021-02-05 02:43] LABS: ALANINE AMINOTRANSFERASE 24 U/L (12-78); ALBUMIN 3.7 g/dL (3.4-5.0); ANION GAP 8 mmol/L (5-15); CALCIUM 8.9 mg/dL (8.5-10.1); CHLORIDE 108 mmol/L (98-107)
[2021-02-05 02:51] LABS: % IRON SATURATION 15 % (20-55); ALKALINE PHOSPHATASE 105 U/L (45-117); BILIRUBIN,TOTAL 0.4 mg/dL (0.2-1.0); CHOL/HDL RATIO 4.7; CHOLESTEROL, TOTAL 161 mg/dL (140-239); CREATININE 0.82 mg/dL (0.55-1.02); HDL CHOL % 21 % (28-40); HDL CHOLESTEROL (DIRECT) 34 mg/dL (40-60); IRON LEVEL 41 mcg/dL (50-170); LDL CHOLESTEROL,CALCULATED 61 mg/dL (54-169); LDL/HDL RATIO 1.8 (0.5-3.0); TOTAL IRON BINDING CAPACITY 275 mcg/dL (250-450); TRIGLYCERIDES 332 mg/dL (50-200); VLDL CHOLESTEROL 66 mg/dL (0-25)
[2021-02-05 02:52] LABS: TROPONIN I < 0.015 ng/mL (0.000-0.045)
[2021-02-05] MEDS: ACETAMINOPHEN 325 MG TABLET PO PRN (04:01)
[2021-02-05] MEDS: LEVOTHYROXINE 75 MCG TABLET PO SCH (05:05)
[2021-02-05 07:24] VITALS: BP 153/90
[2021-02-05] MEDS: ANASTROZOLE 1 MG TABLET HOMEMEDPO SCH (07:46)
[2021-02-05] MEDS: CLOPIDOGREL 75 MG TABLET PO SCH (07:46)
[2021-02-05] MEDS: POTASSIUM CHLORIDE 20 MEQ TAB.ER.PRT PO SCH ×3 (07:46→20:04)
[2021-02-05 08:34] LABS: TROPONIN I < 0.015 ng/mL (0.000-0.045)
[2021-02-05 13:23] VITALS: BP 142/86
[2021-02-05] MEDS: ENOXAPARIN 40 MG/0.4 ML SQ SCH (17:00)
[2021-02-05 19:39] VITALS: BP 151/92
[2021-02-05] MEDS: ATORVASTATIN 80 MG TABLET PO SCH (20:04)
[2021-02-06 01:19] VITALS: BP 159/96
[2021-02-06] MEDS: POTASSIUM CHLORIDE 20 MEQ TAB.ER.PRT PO SCH (01:31)
[2021-02-06] MEDS: LEVOTHYROXINE 75 MCG TABLET PO SCH (06:17)
[2021-02-06 07:03] VITALS: BP 166/93
[2021-02-06 08:04] LABS: CHLORIDE 110 mmol/L (98-107); CREATININE 0.67 mg/dL (0.55-1.02)
[2021-02-06 08:23] LABS: ANION GAP 9 mmol/L (5-15)
[2021-02-06] MEDS: ANASTROZOLE 1 MG TABLET HOMEMEDPO SCH (09:00)
[2021-02-06] MEDS: HYDROCHLOROTHIAZIDE 25 MG TABLET PO SCH (09:02)
[2021-02-06] MEDS: CARVEDILOL 12.5 MG TABLET PO SCH ×3 (09:03→20:58)
[2021-02-06] MEDS: CLOPIDOGREL 75 MG TABLET PO SCH (09:03)
[2021-02-06] MEDS: IRBESARTAN 300 MG TABLET PO SCH (09:03)
[2021-02-06 12:07] VITALS: BP 152/88
[2021-02-06] MEDS: ACETAMINOPHEN 325 MG TABLET PO PRN (13:30)
[2021-02-06] MEDS ORDERED: GADOTERATE 7.5 MMOL/15ML SYR ONE (14:14)
[2021-02-06] MEDS: ENOXAPARIN 40 MG/0.4 ML SQ SCH (16:00)
[2021-02-06 20:45] VITALS: BP 160/96
[2021-02-06] MEDS: ATORVASTATIN 80 MG TABLET PO SCH (20:58)
[2021-02-07 01:37] VITALS: BP 141/87
[2021-02-07 05:35] LABS: ANION GAP 7 mmol/L (5-15); CALCIUM 9.2 mg/dL (8.5-10.1); CHLORIDE 109 mmol/L (98-107)
[2021-02-07 05:38] LABS: CREATININE 0.65 mg/dL (0.55-1.02)
[2021-02-07 05:41] LABS: BASOPHILS % (AUTO) 1 % (0-1); EOSINOPHILS % (AUTO) 5 % (1-7); LYMPHOCYTES % (AUTO) 44 % (22-44); MEAN CORPUSCULAR HEMOGLOBIN 21.8 pg (27.0-34.8); MEAN PLATELET VOLUME 8.2 fL (7.4-10.4); MONOCYTES % (AUTO) 10 % (2-9); NEUTROPHILS % (AUTO) 41 % (42-75); PLATELET COUNT 170 x10^3/uL (130-400); RED BLOOD COUNT 5.26 x10^6/uL (3.82-5.3)
[2021-02-07 05:42] LABS: MD NO
[2021-02-07] MEDS: LEVOTHYROXINE 75 MCG TABLET PO SCH (05:58)
[2021-02-07 07:36] VITALS: BP 153/89
[2021-02-07] MEDS: CLOPIDOGREL 75 MG TABLET PO SCH (07:41)
[2021-02-07] MEDS: CARVEDILOL 12.5 MG TABLET PO SCH ×2 (07:41→16:04)
[2021-02-07] MEDS: HYDROCHLOROTHIAZIDE 25 MG TABLET PO SCH (07:41)
[2021-02-07] MEDS: IRBESARTAN 300 MG TABLET PO SCH (07:41)
[2021-02-07] MEDS: ANASTROZOLE 1 MG TABLET HOMEMEDPO SCH (07:49)
[2021-02-07] MEDS ORDERED: REGADENOSON 0.4 MG/5 ML SYRINGE ONE (08:40)
[2021-02-07 13:26] VITALS: BP 153/86
[2021-02-07] MEDS ORDERED: ATOR-2 PO (15:54)
[2021-02-07] MEDS ORDERED: CLOP75TA PO (15:54)
[2021-02-07] MEDS: ENOXAPARIN 40 MG/0.4 ML SQ SCH (17:00)
== END 2021-02-07 17:55 | disposition home or self-care (01) | DRG 103 ==
LOC: ED 14:44 → EDIP 15:25 → UNDOADMIN 15:33 → EDIP 15:33 → 4EST 16:43
PROVIDERS: ADMIT Internal Medicine; ATTEND Internal Medicine
DX: G43.109 Migraine with aura, not intractable, without status migrainosus (principal); I47.2 Ventricular tachycardia; G45.9 Transient cerebral ischemic attack, unspecified; M35.00 Sjogren syndrome, unspecified; I10 Essential (primary) hypertension; D75.89 Other specified diseases of blood and blood-forming organs; E06.3 Autoimmune thyroiditis; E78.5 Hyperlipidemia, unspecified; E87.6 Hypokalemia; Z80.0 Family history of malignant neoplasm of digestive organs; Z80.3 Family history of malignant neoplasm of breast; Z83.3 Family history of diabetes mellitus; Z85.3 Personal history of malignant neoplasm of breast; Z90.11 Acquired absence of right breast and nipple; Z90.710 Acquired absence of both cervix and uterus; K21.9 Gastro-esophageal reflux disease without esophagitis; K29.70 Gastritis, unspecified, without bleeding; I66.01 Occlusion and stenosis of right middle cerebral artery
CPT/HCPCS: 36415; 70450; 70496; 70498; 70551; 70552; 71045; 78452; 80047; 80048; 80053; 80061; 82728; 82962; 83036; 83540; 83550; 83735; 84443; 84484; 85025; 85610; 85651; 85730; 93005; 93017; 93306; 93356; 99285; G0378; J1650; J2785; Q9967; 92522-GN; A9502; A9575

== ENCOUNTER → 2021-03-19 | Outpatient (CLI) | payer BC ==
[~2021-03-19] MED LIST changes: +ANAS1TAB49 PO; +ATOR-2 PO; +CARV6.2512 PO; +CLOP75TA PO; +HYDR25TA6 PO
== END | disposition home or self-care (01) ==
LOC: CFH 15:38
PROVIDERS: ATTEND Surgery
DX: Z12.31 Encounter for screening mammogram for malignant neoplasm of breast (principal)
CPT/HCPCS: 77063; 77067

== ENCOUNTER → 2021-04-29 | Outpatient (CLI) | payer BC | END | disposition home or self-care (01) | LOC: CFH 12:56 | PROVIDERS: ATTEND Specialist | DX: C50.811 Malignant neoplasm of overlapping sites of right female breast (principal); I08.8 Other rheumatic multiple valve diseases | CPT/HCPCS: 93308; 93321; 93325; 93356 ==